=== PATIENT | female | born 1980 | race African-American/Black ===

== ENCOUNTER 2017-12-01 22:28 | Emergency (ER) | payer SELFPAY ==
[2017-12-01] MEDS ORDERED: IV NORMAL SALINE 1000ML BAG 1,000 ML IV (22:45)
[2017-12-01] MEDS ORDERED: methylPREDNISolone SOD SUCC PF 125 MG/2 ML VIAL. IV (22:45)
[2017-12-01] MEDS ORDERED: MAGNESIUM SULFATE 2GM 50 ML IV (22:45)
[2017-12-01] MEDS: ALBUTEROL SULFATE 2.5 MG/3 ML NEBU. NEB (22:45)
[2017-12-01] MEDS: IPRATRPIUM/ALBUTEROL 0.5/2.5MG 3 ML NEBU. NEB (22:45)
[2017-12-01 23:24] LABS: ADD MAN DIFF? NO
[2017-12-01 23:27] LABS: BASO % 1 % (0-3); EOS % 18 % (0-3); HEMATOCRIT 40.3 % (36.0-47.0); HEMOGLOBIN 13.2 g/dL (12.0-15.5); LYMPH # 2.1 x10^3/uL (1.0-4.8); LYMPH % 38 % (24-48); MEAN CORPUSCULAR HEMOGLOBIN 25 pg (25-35); MEAN CORPUSCULAR HGB CONC 33 g/dL (31-37); MEAN CORPUSCULAR VOLUME 77 fL (79-100); MONO # 0.4 x10^3/uL (0.0-1.1); MONO % 7 % (0-9); NEUT % 36 % (31-73); PLATELET COUNT 364 x10^3/uL (140-400); RED BLOOD COUNT 5.23 x10^6/uL (3.50-5.40); RED CELL DISTRIBUTION WIDTH 15.2 % (11.5-14.5); WHITE BLOOD COUNT 5.4 x10^3/uL (4.0-11.0)
[2017-12-01] MEDS ORDERED: ONDANSETRON PF 4 MG/2 ML VIAL. IV (23:30)
[2017-12-01 23:36] LABS: ANION GAP 6 (6-14); BLOOD UREA NITROGEN 9 mg/dL (7-20); BUN/CREATININE RATIO 15 (6-20); CALCIUM 8.6 mg/dL (8.5-10.1); CARBON DIOXIDE 34 mmol/L (21-32); CHLORIDE 100 mmol/L (98-107); CREATININE 0.6 mg/dL (0.6-1.0); GFR 137.7; GLUCOSE 101 mg/dL (70-99); POTASSIUM 3.6 mmol/L (3.5-5.1); SODIUM 140 mmol/L (136-145)
[2017-12-01 23:42] LABS: ALBUMIN 3.2 g/dL (3.4-5.0); ALBUMIN/GLOBULIN RATIO 0.7 (1.0-1.7); ALK PHOS 78 U/L (46-116); ALT (SGPT) 38 U/L (14-59); AST (SGOT) 30 U/L (15-37); MAGNESIUM 2.1 mg/dL (1.8-2.4); TOTAL BILIRUBIN 0.4 mg/dL (0.2-1.0); TOTAL PROTEIN 7.7 g/dL (6.4-8.2)
== END 2017-12-01 23:31 | disposition left against medical advice (07) ==
LOC: ER 23:31
DX: J45.901 Unspecified asthma with (acute) exacerbation (principal); F11.10 Opioid abuse, uncomplicated; Z93.0 Tracheostomy status
CPT/HCPCS: 31720; 36415; 71045; 80053; 83735; 85025; 94640; 99285-25; J7613; J7620